=== PATIENT | female | born 1990 | race Hispanic/Latino ===

== ENCOUNTER 2017-05-01 22:54 | Observation (INO) | payer MEDICAID ==
[~2017-05-01] VITALS: Ht 152.4 cm; Wt 98.0 kg
[~2017-05-01 22:54] MED LIST: DOCU-116 PO; MO8B PO; PREN1TAB26 PO
[2017-05-01 23:19] LABS: APPEARANCE,URINE Clear (CLEAR); BILIRUBIN,URINE Negative (NEGATIVE); COLOR,URINE Yellow (YELLOW); GLUCOSE, URINE (UA) Negative (NEGATIVE); KETONES,URINE Negative (NEGATIVE); LEUKOCYTE ESTERASE ,URINE Small (NEGATIVE); NITRATE,URINE Negative (NEGATIVE); OCCULT BLOOD,URINE Negative (NEGATIVE); PH,URINE 6.5 (5.0-8.0); PROTEIN,URINE Negative (NEGATIVE); UROBILINOGEN,URINE 0.2 mg/dL (0.2-1.0)
[2017-05-01 23:25] LABS: BACTERIA,URINE None Seen /HPF (None Seen); RBC,URINE None Seen /HPF (0-1); SQUAMOUS EPITHELIAL CELL,UR Few /HPF (0-2); WBC,URINE 0-1 /HPF (0-1)
== END 2017-05-02 | disposition home or self-care (01) ==
LOC: EDH 22:54 → LDH 22:55
PROVIDERS: ADMIT Specialist; ATTEND Specialist
DX: O26.893 Other specified pregnancy related conditions, third trimester (principal); M54.9 Dorsalgia, unspecified; W19.XXXA Unspecified fall, initial encounter; Y93.89 Activity, other specified; Y92.89 Other specified places as the place of occurrence of the external cause; Y99.8 Other external cause status; Z3A.37 37 weeks gestation of pregnancy
CPT/HCPCS: 81001; 99285; G0378

== ENCOUNTER 2017-05-14 01:55 | Observation (INO) | payer MEDICAID ==
[~2017-05-14] VITALS: Ht 157.5 cm; Wt 98.4 kg
[2017-05-14] MEDS ORDERED: PREN1TAB89 PO (02:15)
[2017-05-14] MEDS ORDERED: CALC500T7 PO (02:16)
[2017-05-14 02:17] VITALS: BP 135/78
[2017-05-14] MEDS ORDERED: AMPICILLIN 2GM+NS 100ML 100 ML IV SCH (03:00)
[2017-05-14] MEDS ORDERED: LACTATED RINGERS 1000ML 1,000 ML IV SCH (03:00)
[2017-05-14] MEDS ORDERED: AMPICILLIN 1GM+NS 50ML 50 ML IV SCH (03:00)
== END 2017-05-14 03:35 | disposition home or self-care (01) ==
LOC: EDH 01:55 → INTOOBSV 01:56 → LDH 01:56 → OBSVTOIN 01:56
PROVIDERS: ADMIT Specialist; ATTEND Specialist
DX: O62.9 Abnormality of forces of labor, unspecified (principal); O75.82 Onset (spontaneous) of labor after 37 completed weeks of gestation but before 39 completed weeks gestation, with delivery by (planned) cesarean section; Z3A.38 38 weeks gestation of pregnancy; Z86.32 Personal history of gestational diabetes
CPT/HCPCS: 99285; G0378 ×2

== ENCOUNTER 2017-05-14 20:17 | Inpatient (IN) | payer MEDICAID ==
[~2017-05-14] VITALS: Ht 157.5 cm; Wt 98.4 kg
[~2017-05-14 20:17] MED LIST changes: +CALC500T7 PO; +PREN1TAB89 PO
[2017-05-14] MEDS ORDERED: AMPICILLIN 2GM+NS 100ML 100 ML IV SCH (20:30)
[2017-05-14 20:45] VITALS: BP 118/60
[2017-05-14 21:14] LABS: APPEARANCE,URINE Clear (CLEAR); BILIRUBIN,URINE Negative (NEGATIVE); COLOR,URINE Yellow (YELLOW); GLUCOSE, URINE (UA) TRACE mg/dL (NEGATIVE); KETONES,URINE Negative (NEGATIVE); LEUKOCYTE ESTERASE ,URINE Large (NEGATIVE); NITRATE,URINE Negative (NEGATIVE); OCCULT BLOOD,URINE Negative (NEGATIVE); PH,URINE 5.5 (5.0-8.0); PROTEIN,URINE Negative (NEGATIVE)
[2017-05-14 21:19] LABS: HEMATOCRIT 35.4 % (36-48); MEAN CORPUSCULAR HEMOGLOBIN 30.6 pg (27.0-33.0); MEAN CORPUSCULAR HGB CONC 34.6 g/dL (32.0-36.0); MEAN CORPUSCULAR VOLUME 88.3 fL (79-99); PLATELET COUNT (AUTO) 203 K/uL (130-400); RED BLOOD CELL COUNT(AUTO) 4.01 MIL/uL (4.00-5.50); RED CELL DISTRIBUTION WIDTH 15.5 % (11.0-15.5)
[2017-05-14] MEDS: LACTATED RINGERS 1000ML 1,000 ML IV PRN (21:22)
[2017-05-14 21:27] LABS: BACTERIA,URINE None Seen /HPF (None Seen); RBC,URINE None Seen /HPF (0-1); WBC,URINE 26-50 /HPF (0-1)
[2017-05-15] MEDS: AMPICILLIN 1GM+NS 50ML 50 ML IV SCH ×3 (01:08→20:30)
[2017-05-15] MEDS: LACTATED RINGERS 1000ML 1,000 ML IV PRN (05:09)
[2017-05-15] MEDS ORDERED: LACTATED RINGERS 1000ML 1,000 ML IV ONE (05:39)
[2017-05-15] MEDS ORDERED: OXYTOCIN 10 USP UNITS/ML ONE ×2 (05:39→12:37)
[2017-05-15] MEDS ORDERED: OXYTOCIN 10 USP UNITS/ML 20 UNIT in LACTATED RINGERS 1000ML 1,000 ML IV SCH (06:00)
[2017-05-15] MEDS ORDERED: WITCH HAZEL 1 PAD TP PRN (09:15)
[2017-05-15] MEDS ORDERED: LANOLIN 30GM OINTMENT TP PRN (09:15)
[2017-05-15] MEDS ORDERED: MEASLES/MUMPS/RUBELLA VACCINE, LIVE 0.5 ML/VIAL SQ PRN (09:15)
[2017-05-15] MEDS ORDERED: ACETAMINOPHEN-CODEINE 300/30MG TAB PO PRN (09:15)
[2017-05-15] MEDS ORDERED: DIPH,PERTUSS(ACELL),TET VAC/PF 0.5 ML VIAL IM PRN (09:15)
[2017-05-15] MEDS ORDERED: BENZOCAINE/LANOLIN/ALOE VERA 60 ML AEROSOL TP PRN (09:15)
[2017-05-15 10:30] VITALS: BP 99/57
[2017-05-15 11:25] VITALS: BP 100/63
[2017-05-15] MEDS: IBUPROFEN 800 MG TAB PO PRN (14:41)
[2017-05-15 15:48] VITALS: BP 99/68
[2017-05-15 19:41] VITALS: BP 100/69
[2017-05-15] MEDS: DOCUSATE SODIUM 100 MG CAP PO SCH (21:23)
[2017-05-15 23:30] VITALS: BP 113/62
[2017-05-16] MEDS: AMPICILLIN 1GM+NS 50ML 50 ML IV SCH ×3 (00:30→08:30)
[2017-05-16 03:07] VITALS: BP 110/61
[2017-05-16 08:12] VITALS: BP 112/68
[2017-05-16] MEDS: DOCUSATE SODIUM 100 MG CAP PO SCH ×2 (08:58→21:46)
[2017-05-16] MEDS: IBUPROFEN 800 MG TAB PO PRN ×2 (08:59→17:06)
[2017-05-16 10:22] LABS: HEPATITIS Bs ANTIGEN SCREEN P Negative (Negative)
[2017-05-16 12:02] VITALS: BP 97/61
[2017-05-16 15:51] VITALS: BP 116/61
[2017-05-16 20:13] VITALS: BP 112/70
[2017-05-16 23:45] VITALS: BP 108/65
[2017-05-17 03:56] VITALS: BP 103/68
[2017-05-17 07:37] VITALS: BP 106/64
[2017-05-17] MEDS: DOCUSATE SODIUM 100 MG CAP PO SCH (09:45)
[2017-05-17] MEDS: IBUPROFEN 800 MG TAB PO PRN (09:46)
[2017-05-17] MEDS: AMPICILLIN 1GM+NS 50ML 50 ML IV SCH (11:12)
[2017-05-17 11:52] VITALS: BP 123/76
== END 2017-05-17 16:00 | disposition home or self-care (01) | DRG 560 ==
LOC: LDH 20:17 → WSH 05-15 10:30
PROVIDERS: ADMIT Specialist; ATTEND Specialist
PROC: 10E0XZZ Delivery of Products of Conception, External Approach (ICD-10-PCS; principal; 2017-05-15)
PROC: 10907ZC Drainage of Amniotic Fluid, Therapeutic from Products of Conception, Via Natural or Artificial Opening (ICD-10-PCS; 2017-05-15)
PROC: 3E0234Z Introduction of Serum, Toxoid and Vaccine into Muscle, Percutaneous Approach (ICD-10-PCS; 2017-05-15)
PROC: 3E0234Z Introduction of Serum, Toxoid and Vaccine into Muscle, Percutaneous Approach (ICD-10-PCS; 2017-05-15)
DX: O24.420 Gestational diabetes mellitus in childbirth, diet controlled (principal); O99.824 Streptococcus B carrier state complicating childbirth; Z37.0 Single live birth; Z3A.39 39 weeks gestation of pregnancy; Z23 Encounter for immunization
CPT/HCPCS: 36415; 81001; 85027; 86592; 86850; 86900; 86901; 87340; 90707; 90715; A4606; G0378; J0290; J2590; J7120